=== PATIENT | male | born 1990 | race Two or more races ===

== ENCOUNTER → 2016-12-21 | Outpatient (CLI) | payer BC ==
[2016-12-21 14:22] LABS: CHLORIDE,CL 106 mmol/L (98-110); SODIUM,NA 139 mmol/L (136-146)
--- NOTE | 2016-12-21 17:08 | CR ---
EXAMINATION: Lumbar spine HISTORY: Low back pain COMPARISON: None TECHNIQUE: AP and lateral views FINDINGS: The lumbar spinal alignment is normal. The vertebral body heights and disc spaces appear w ell-maintained. There is no fracture or dislocation. Bone mineralization and joint spaces appear nor mal. The SI joints are symmetric. IMPRESSION: Grossly unremarkable lumbar spine.
== END | disposition home or self-care (01) ==
LOC: MW.CHFP 12:54
PROVIDERS: ATTEND Student in an Organized Health Care Education/Training Program
DX: M54.5 Low back pain (principal); I10 Essential (primary) hypertension
CPT/HCPCS: 36415; 72100; 72100-26; 80048; 93005

== ENCOUNTER 2018-11-16 17:06 | Emergency (ER) | payer SELFPAY ==
[2018-11-16] MEDS ORDERED: Sodium Chloride 0.9% 1,000 ML IV ONE (17:10)
--- NOTE | 2018-11-16 17:11 | EDM.PDOC ---
ED HPI GENERAL MEDICAL PROBLEM - General Stated Complaint: PALPITATIONS Time Seen by Provider: 11/16/18 17:10 Source of Information: Reports: Patient - History of Present Illness INITIAL COMMENTS - FREE TEXT/NARRATIVE: HISTORY AND PHYSICAL: History of present illness: [Patient with hypertension and medication noncompliance presents with palpitations and elevated blood pressure, he notes that he has been under a lot of stress with family and ulnar of his own [employer] lately and had ran out of his medications he was formerly on lisinopril and hydrochlorothiazide he elected to stop the medications after he ran out and has been treating with herbal remedies He has no other symptoms such as fever nausea vomiting chills sweats no chest pain shortness breath headache dizziness no bowel or urine symptoms Review of systems: As per history of present illness and below otherwise all systems reviewed and negative. Past medical history: As per history of present illness and as reviewed below otherwise noncontributory. Surgical history: As per history of present illness and as reviewed below otherwise noncontributory. Social history: No reported history of drug or alcohol abuse. Family history: As per history of present illness and as reviewed below otherwise noncontributory. Physical exam: HEENT: Atraumatic, normocephalic, pupils reactive, negative for conjunctival pallor or scleral icterus, mucous membranes moist, throat clear, neck supple, nontender, trachea midline. Lungs: Clear to auscultation, breath sounds equal bilaterally, chest nontender. Heart: S1S2, regular, negative for clicks, rubs, or JVD. Abdomen: Soft, nondistended, nontender. Negative for masses or hepatosplenomegaly. Negative for costovertebral tenderness. Pelvis: Stable nontender. Genitourinary: Deferred. Rectal: Deferred. Extremities: Atraumatic, negative for cords or calf pain. Neurovascular unremarkable. Neuro: Awake, alert, oriented. Cranial nerves II through XII unremarkable. Cerebellum unremarkable. Motor and sensory unremarkable throughout. Exam nonfocal. Diagnostics: [CBC CMP troponin EKG Chest 1 view ] Therapeutics: [ normal saline Vasotec ] Hydrochlorothiazide Lisinopril Hydrochlorothiazide Follow-up with cardiology and her primary care Impression: [Hypertension Medication noncompliance ] Definitive disposition and diagnosis as appropriate pending reevaluation and review of above. - Related Data Allergies Allergy/AdvReac Type Severity Reaction Status Date / Time No Known Allergies Allergy Verified 11/16/18 17:11 Home Meds: Home Meds Lisinopril 20 tab PO DAILY 12/26/14 [History] ED ROS GENERAL - Review of Systems Review Of Systems: See Below ED EXAM, GENERAL - Physical Exam Exam: See Below Course - Vital Signs Last Recorded V/S: Last Vital Signs Temp 97.6 F 11/16/18 17:11 Pulse 89 11/16/18 17:11 Resp 18 11/16/18 17:11 BP 148/110 H 11/16/18 17:27 Pulse Ox 98 11/16/18 17:11 - Orders/Labs/Meds Orders: Active Orders 24 hr Category Date Time Status EKG Documentation Completion [RC] STAT Care 11/16/18 17:10 Active Labs: Laboratory Tests 11/16/18 11/16/18 11/16/18 Range/Units 17:16 17:16 18:30 WBC 8.96 (4.0-11.0) K/uL RBC 5.22 (4.50-5.90) M/uL Hgb 16.0 (13.0-17.0) g/dL Hct 43.7 (38.0-50.0) % MCV 83.7 (80.0-98.0) fL MCH 30.7 (27.0-32.0) pg MCHC 36.6 (31.0-37.0) g/dL RDW Std Deviation 37.3 (28.0-62.0) fl RDW Coeff of Abad 12 (11.0-15.0) % Plt Count 220 (150-400) K/uL MPV 10.20 (7.40-12.00) fL Neut % (Auto) 71.6 (48.0-80.0) % Lymph % (Auto) 22.9 (16.0-40.0) % [place] % (Auto) 4.8 (0.0-15.0) % Eos % (Auto) 0.4 (0.0-7.0) % Baso % (Auto) 0.3 (0.0-1.5) % Neut # (Auto) 6.4 H (1.4-5.7) K/uL Lymph # (Auto) 2.1 (0.6-2.4) K/uL [place] # (Auto) 0.4 (0.0-0.8) K/uL Eos # (Auto) 0.0 (0.0-0.7) K/uL Baso # (Auto) 0.0 (0.0-0.1) K/uL Nucleated RBC % 0.0 /100WBC Nucleated RBCs # 0 K/uL Sodium 139 (136-148) mmol/L Potassium 3.8 (3.5-5.1) mmol/L Chloride 104 (98-107) mmol/L Carbon Dioxide 25.4 (21.0-32.0) mmol/L BUN 13 (7.0-18.0) mg/dL Creatinine 1.3 (0.8-1.3) mg/dL Est Cr Clr Drug Dosing 91.20 mL/min Estimated GFR (MDRD) > 60.0 ml/min Glucose 87 (74-106) mg/dL Calcium 9.1 (8.5-10.1) mg/dL Total Bilirubin 0.5 (0.2-1.0) mg/dL AST 35 (15-37) IU/L ALT 69 H (14-63) IU/L Alkaline Phosphatase 51 (46-116) U/L Troponin I < 0.050 (0.000-0.056) ng/mL Total Protein 8.0 (6.4-8.2) g/dL Albumin 4.2 (3.4-5.0) g/dL Globulin 3.8 (2.6-4.0) g/dL Albumin/Globulin Ratio 1.1 (0.9-1.6) Lipase 116 (73-393) U/L Urine Color YELLOW Urine Appearance CLEAR Urine pH 7.0 (5.0-8.0) Ur Specific [place] <= 1.005 (1.001-1.035) Urine Protein NEGATIVE (NEGATIVE) mg/dL Urine Glucose (UA) NEGATIVE (NEGATIVE) mg/dL Urine Ketones TRACE H (NEGATIVE) mg/dL Urine Occult Blood NEGATIVE (NEGATIVE) Urine Nitrite NEGATIVE (NEGATIVE) Urine Bilirubin NEGATIVE (NEGATIVE) Urine Urobilinogen 0.2 (<2.0) EU/dL Ur Leukocyte Esterase NEGATIVE (NEGATIVE) Meds: Medications Discontinued Medications Generic Name Dose Route Start Last Admin Trade Name Freq PRN Reason Stop Dose Admin Enalaprilat 1.25 mg 11/16/18 17:19 11/16/18 17:27 Vasotec Iv IVPUSH 11/16/18 17:20 1.25 mg ONETIME ONE Administration Hydrochlorothiazide 25 mg 11/16/18 17:55 11/16/18 18:05 Hydrochlorothiazide PO 11/16/18 17:56 25 mg ONETIME ONE Administration Sodium Chloride 1,000 mls @ 999 mls/hr 11/16/18 17:10 11/16/18 17:27 Normal Saline IV 11/16/18 18:10 999 mls/hr STAT ONE Administration Departure - Departure Time of Disposition: 18:43 Disposition: Home, Self-Care 01 Condition: Good Clinical Impression: Hypertension, Medication non-compliance due to excessive pill burden - Discharge Information Referrals: PCP,None [Primary Care Provider] - Additional Instructions: Medication as prescribed Return if symptoms persist or worsen ER follow-up with cardiology early next week Sunday or Sunday, follow up with primary care as needed [facility] Primary Care - Non-Interventional Cardiology [address] [place] [id number] [facility] - Primary Care [address] [place] [id number] The following information is given to patients seen in the emergency department who are being discharged to home. This information is to outline your options for follow-up care. We provide all patients seen in our emergency department with a follow-up referral. The need for follow-up, as well as the timing and circumstances, are variable depending upon the specifics of your emergency department visit. If you don't have a primary care physician on staff, we will provide you with a referral. We always advise you to contact your personal physician following an emergency department visit to inform them of the circumstance of the visit and for follow-up with them and/or the need for any referrals to a consulting specialist. The emergency department will also refer you to a specialist when appropriate. This referral assures that you have the opportunity for follow-up care with a specialist. All of these measure are taken in an effort to provide you with optimal care, which includes your follow-up. Under all circumstances we always encourage you to contact your private physician who remains a resource for coordinating your care. When calling for follow-up care, please make the office aware that this follow-up is from your recent emergency room visit. If for any reason you are refused follow-up, please contact the [facility] emergency department at and asked to speak to the emergency department charge nurse. - My Orders Last 24 Hours: My Active Orders 11/16/18 17:10 EKG Documentation Completion [RC] STAT - Assessment/Plan Last 24 Hours: My Active Orders 11/16/18 17:10 EKG Documentation Completion [RC] STAT
[2018-11-16] MEDS ORDERED: Enalaprilat 1.25 MG/ML SDV IVPUSH ONE (17:19)
--- NOTE | 2018-11-16 17:53 | CR ---
INDICATION: pain/sob FINDINGS: A single portable chest x-ray shows a normal cardiac silhouette. The lungs show no focal pulmonary opacities. Sharp pleural margins. No pneumothorax. IMPRESSION: No evidence of acute pulmonary abnormalities. Dictated by Mac Mccormick MD @ 11/16/2018 5:52:17 PM Dictated by: Mac Mccormick MD @ 11/16/2018 17:52:26 (Electronically Signed)
[2018-11-16] MEDS ORDERED: Hydrochlorothiazide 25 MG Tab PO ONE (17:55)
[2018-11-16 18:15] LABS: CHLORIDE,CL 104 mmol/L (98-107); SODIUM,NA 139 mmol/L (136-148)
[2018-11-16 19:07] VITALS: BP 147/108
== END 2018-11-16 19:02 | disposition home or self-care (01) ==
LOC: MW.ED 17:06
DX: I10 Essential (primary) hypertension (principal); Z91.19 Patient's noncompliance with other medical treatment and regimen; Z79.899 Other long term (current) drug therapy
CPT/HCPCS: 36415; 71045; 80053; 81003; 83690; 84484; 85025; 93005; 96361; 96374; 99285; A9270; J7040